=== PATIENT | female | born 1960 | race Caucasian/White ===

== ENCOUNTER → 2018-01-08 | Outpatient (REF) ==
[2018-01-08 17:18] LABS: THYROID STIMULATING HORMONE 2.7 uIU/mL (0.465-4.680)
== END ==
LOC: ZLAB.WCH 15:53
PROVIDERS: Dermatology
DX: Z01.89 Encounter for other specified special examinations (principal)

== ENCOUNTER → 2018-01-29 | Outpatient (CLI) | payer BC | LOC: MC.RAD 01-22 08:30 | DX: N60.91 Unspecified benign mammary dysplasia of right breast (principal); R92.0 Mammographic microcalcification found on diagnostic imaging of breast ==